=== PATIENT | female | born 1965 | race Caucasian/White ===

== ENCOUNTER → 2016-05-08 | Outpatient (CLI) | payer BC ==
--- NOTE | 2016-05-08 15:24 | Diagnostic Imaging Report ---
KUB. INDICATION: Abdominal pain. FINDINGS: There are multiple pelvic calcifications likely related to phleboliths. There are also surgical clips which may relate to tubal ligation one projecting in the midline and the other projecting on the right side of the pelvis. No definitive urinary tract stones. Moderate amount of fecal material seen in the colon. No dilated small bowel loops noted. IMPRESSION: No acute process. Dictated by: Dictated on workstation # [id number]
== END ==
LOC: RAD 13:54
PROVIDERS: ATTEND Nurse Practitioner Family
DX: R10.84 Generalized abdominal pain (principal)
CPT/HCPCS: 74000

== ENCOUNTER → 2020-08-07 | Outpatient (CLI) | payer BC ==
--- NOTE | 2020-08-07 16:30 | Diagnostic Imaging Report ---
INDICATION: Routine screening. COMPARISON is made with prior mammogram of 05/15/2011. 2-D and 3-D bilateral screening mammography was performed with CAD. Both breast are heterogeneously dense, limiting the sensitivity of mammography. The parenchymal pattern is stable. No mass or malignant appearing microcalcifications are seen. There are benign calcifications. Axillae are unremarkable. IMPRESSION: BI-RADS Category 2 No mammographic features suspicious for malignancy are identified. ACR BI-RADS Category 2: Benign findings. Result letter will be mailed to the patient. Note: At least 10% of breast cancer is not imaged by mammography. Dictated by: Dictated on workstation # [id number]
== END ==
LOC: RAD 13:15
PROVIDERS: ATTEND Family Medicine
DX: Z12.31 Encounter for screening mammogram for malignant neoplasm of breast (principal)
CPT/HCPCS: 77063; 77067